=== PATIENT | male | born 1970 | race Caucasian/White ===

== ENCOUNTER 2023-07-04 07:10 | Emergency (ER) | payer OTHER, SELFPAY ==
[2023-07-04 07:17] VITALS: BP 136/99; PULSE 80; RESP 18; TEMP 36.6; O2SAT 98; BMI 35.4
--- NOTE | 2023-07-04 07:58 | ED_ITS ---
HPI - General Adult General Chief complaint: Eye Problems Stated complaint: rt side eye redness Time Seen by Provider: 07/04/23 07:25 Source: patient Mode of arrival: Ambulatory Limitations: no limitations History of Present Illness HPI narrative: Patient is a 52-year-old male here for evaluation of right eye redness. He states that the discomfort started within the past 24 hours. Is isolated to his right eye. He is visiting this area from [facility]. Denies any trauma. Does have some pressure behind his eye. Has some redness of the right eye. He has some ofloxacin drops left over from a prior eye infection that he used last evening. He states that he feels like the symptoms have actually improved somewhat. No redness of the skin around the eye. He does wear corrective lenses. No prior surgical history to his eyes. Does not have a runny nose. No sore throat. Related Data Previous Rx's Medication Instructions Recorded ofloxacin 0.3 % eye drops See Rx Instructions .Route 07/04/23 .COMPLEX #5 mL Allergies Allergy/AdvReac Type Severity Reaction Status Date / Time No Known Drug Allergies Allergy Verified 07/04/23 07:21 Review of Systems Eyes Eyes: Reports system reviewed and no additional complaints, except as documented ENT Ears, Nose, Mouth, and Throat: Reports system reviewed and no additional complaints, except as documented Integumentary/Breasts Skin/Breast: Reports system reviewed and no additional complaints, except as documented Allergic/Immunologic Allergic/Immunologic: Reports system reviewed and no additional complaints, except as documented Patient History Social History Smoking Status: Never smoker Smoking Status: Never smoker alcohol intake frequency: a few times a month Substance Use Type: does not use Exam Initial Vital Signs Initial Vital Signs: Vital Signs Temperature 97.9 F 07/04/23 07:17 Pulse Rate 80 07/04/23 07:17 Respiratory Rate 18 07/04/23 07:17 Blood Pressure 136/99 H 07/04/23 07:17 Pulse Oximetry 98 07/04/23 07:17 Oxygen Delivery Method Room Air 07/04/23 07:17 [facility] Head: normal to inspection and normocephalic Face and sinus: normal facial exam Mouth: oral mucosae normal Eyes Periorbital: periorbital findings normal Conjunctivae: conjunctival abnormality right conjunctival injection and discharge (Clear); without pterygia Cornea: corneas normal and fluorescein used Pupils: PERRL EOM: EOM intact bilaterally Other: Intra-ocular pressure right eye 22, intra-ocular pressure left eye 22 Skin General: no rashes or lesions noted Course Orders Ordered: Discontinued Medications Fluorescein Sodium (Fluorescein 1 Mg Strip) 1 mg EYE-BOTH NOW ONE Stop: 07/04/23 07:27 Proparacaine HCl (Proparacaine 0.5% Ophth Karey) 1 drops EYE-RIGHT NOW ONE Stop: 07/04/23 07:27 Vital Signs Vital signs: Vital Signs - 8 hr 07/04/23 07:17 Temperature 97.9 F Pulse Rate 80 Respiratory Rate 18 Blood Pressure 136/99 H Pulse Oximetry 98 Oxygen Delivery Method Room Air Medical Decision Making MDM Narrative Medical decision making narrative: Patient is very mild injection of the conjunctiva of the right eye. No foreign body noted. Interocular pressures are unremarkable. There was no signs of orbital cellulitis/preseptal cellulitis. No corneal abrasion. He reports im provement of symptoms with the proparacaine drops and also with the ofloxacin drops last evening. Plan will be to put him on ofloxacin drops. He was given strict return precautions. He expressed understanding and agreement. Discharge Plan Departure Patient Disposition: Home Clinical Impression: Conjunctivitis Instructions: Conjunctivitis Activity Restrictions/Additional Instructions: Use the antibiotic drops as directed. Be sure that you were washing your hands frequently. Return to the emergency department for new or worsening symptoms. Prescriptions: New ofloxacin 0.3 % drops See Rx Instructions .ROUTE .COMPLEX Qty: 5 1RF Rx Instructions: 2 drp into right eye Q2 hours while awake for 2 days then q6 hours while awake for the next 5 days Stand Alone Forms: Patient Portal/API
[2023-07-04] MEDS: PROPARACAINE 0.5% OPHTH SOL 1 DROPS EYE-RIGHT (08:08)
[2023-07-04] MEDS: FLUORESCEIN 1 MG STRIP EYE-BOTH (08:08)
== END 2023-07-04 08:09 | disposition home or self-care (01) ==
PROVIDERS: Emergency Provider Emergency Medicine
DX: H10.9 Unspecified conjunctivitis (principal)
CPT/HCPCS: 99282; 99283